=== PATIENT | male | born 1950 | race Caucasian/White ===

== ENCOUNTER 2021-07-24 00:01 | Emergency (ER) | payer MEDICARE, SELFPAY ==
--- NOTE | ~2021-07-24 | CT_ITS ---
EXAMINATION: CT brain wo con EXAM DATE: 07/24/2021 01:49 INDICATION: Head injury, right eyebrow laceration, fall. Hit edge of table. TECHNIQUE: Spiral CT of the head was performed without contrast. Axial, coronal and sagittal images were reviewed. The dose-length product (DLP) for this examination was 605.33 mGy-cm. The exposure w as tailored according to patient size, and iterative reconstruction (ASIR) was used as additional dos e reduction technique. There is no prior study for comparison. FINDINGS: There is no acute intraparenchymal hemorrhage. No evidence of intraparenchymal brain mass lesion. No evidence of acute infarction. Please note that initial head CT has limited sensitivity f or small or acute infarctions. There is mild periventricular and subcortical hypodensity, nonspecific but probably related to small vessel ischemic disease. There is mild prominence of the sulci and v entricles related to cerebral atrophy. There is intracranial carotid arteriosclerosis. There are n o extra-axial collections. There is no mass effect or midline shift. The orbits are unremarkable. Soft tissue is unremarkable. Partially imaged, partially opacified left maxillary sinus. IMPRESSION: 1. No acute intracranial findings. 2. Chronic age related findings. Reviewed, dictated and finalized at location A.
[2021-07-24 00:15] VITALS: BP 123/76; PULSE 77; RESP 19; TEMP 35.9; O2SAT 99
--- NOTE | 2021-07-24 02:00 | ED.GENADULT ---
HPI - General Adult General Chief complaint: Head Injury Stated complaint: right eyebrow laceration Time Seen by Provider: 07/24/21 01:24 Source: patient and family Limitations: no limitations History of Present Illness HPI narrative: 71-year-old male presenting to the emergency department for evaluation after having a head injury. Patient states he was in bed and heard a noise or had a bad dream that caused him to jump out of bed. Much of get a bed patient did strike his head on a nearby nightstand resulting in a laceration. Patient denied any loss of consciousness. Patient denies any other pain or injury. Patient does not take blood thinners. Patient suspected his tetanus was not up-to-date. Related Data Allergies Allergy/AdvReac Type Severity Reaction Status Date / Time Penicillins Allergy Mild Verified 06/03/15 10:29 Review of Systems Review of Systems: CONSTITUTIONAL: Denies fever, chills, or sweats. EYES: Denies visual changes, redness, or discharge. ENT: Denies rhinorrhea, congestion, sore throat, or otalgia. CARDIOVASCULAR: Denies chest pain, palpitations, or edema. RESPIRATORY: Denies cough or dyspnea. GASTROINTESTINAL: Denies abdominal pain, nausea, vomiting, or diarrhea. GENITOURINARY: Denies dysuria or hematuria. SKIN: Laceration involving right eyebrow MUSCULOSKELETAL: Denies back pain, joint pain, or myalgia. NEUROLOGIC: Denies headache, numbness, or weakness. All systems reviewed & are unremarkable except as noted in HPI and below Exam Narrative: APPEARANCE: Well appearing, no pain, no distress, well-nourished. HEAD: Vertical 3 cm laceration intersecting the right eyebrow. No bony crepitus EYES: PERRLA/EOMI, conjunctivae clear. NOSE: Normal no drainage NECK: Supple. No adenopathy, no masses. RESPIRATORY: Airway patent, respirations nonlabored. Clear to auscultation bilaterally, no rales, rhonchi, wheezing. CARDIOVASCULAR: Regular rate and rhythm without murmurs rubs or gallops. ABDOMINAL: Soft, nontender, nondistended, normal bowel sounds MUSCULOSKELETAL: Moves all extremities. Strength/ROM intact, No edema, No calf tenderness. NEURO: Alert. Cranial nerves II through XII intact. Grossly intact SKIN: Warm, dry. Normal Color. Laceration as described elsewhere Course Course Emergency Course: Head CT was negative for acute intracranial abnormality. Laceration was repaired as described above and tetanus was updated. Patient and family were updated on wound care and on the importance of close follow-up. Vital Signs Vital signs: Vital Signs Temperature 96.6 F L 07/24/21 00:15 Pulse Rate 77 07/24/21 00:15 Respiratory Rate 19 07/24/21 00:15 Blood Pressure 123/76 07/24/21 00:15 Pulse Oximetry 99 07/24/21 00:15 Temperature 96.6 F L 07/24/21 00:15 Pulse Rate 79 07/24/21 02:01 Respiratory Rate 18 07/24/21 02:01 Blood Pressure 162/71 H 07/24/21 02:01 Pulse Oximetry 98 07/24/21 02:01 Procedures Laceration Laceration 1: Time: 02:46 Site: face Side (If applicable): right (eyebrow) Size (cm): 3 Description: linear Depth: simple, single layer Local Anesthetic: lidocaine 1% and with bicarb Amount of anesthesia used (mL): 3 Pre-repair: wound explored and irrigated ====== Skin Level ====== Skin layer closed with: prolene Size (cm): 6-0 Number of sutures: 6 Technique: simple, interrupted ====== Subcutaneous Layer ====== ====== Muscle Layer ====== ====== Tendon Layer ====== Medical Decision Making Vital Signs Vital Signs: Vital Signs Temperature 96.6 F L 07/24/21 00:15 Pulse Rate 77 07/24/21 00:15 Respiratory Rate 19 07/24/21 00:15 Blood Pressure 123/76 07/24/21 00:15 Pulse Oximetry 99 07/24/21 00:15 Temperature 96.6 F L 07/24/21 00:15 Pulse Rate 79 07/24/21 02:01 Respiratory Rate 18 07/24/21 02:01 Blood Pressure 162/71 H 07/24/21 02:01
[2021-07-24 02:01] VITALS: BP 162/71; PULSE 79; RESP 18; O2SAT 98
[2021-07-24] MEDS: TETANUS,DIPHTHERIA,AC PERTUSSIS ADULT (0.5 ML) BOOSTRIX IM (02:57)
== END 2021-07-24 03:03 | disposition home or self-care (01) ==
PROVIDERS: Emergency Provider Emergency Medicine; PCP Internal Medicine Endocrinology, Diabetes & Metabolism
DX: S01.111A Laceration without foreign body of right eyelid and periocular area, initial encounter (principal); Z23 Encounter for immunization; W06.XXXA Fall from bed, initial encounter
CPT/HCPCS: 12002; 70450; 90471; 90715; 99284

== ENCOUNTER 2023-02-08 18:27 | Emergency (ER) | payer MEDICARE, SELFPAY ==
[2023-02-08] VITALS (7 sets, daily range): BP systolic 117–138; BP diastolic 74–94; PULSE 61–107; RESP 13–20; TEMP 36.4–36.7; O2SAT 98–100
--- NOTE | 2023-02-08 18:47 | ED.ALLEREA ---
HPI - Allergic Reaction General Chief complaint: Allergic Reaction Stated complaint: allergic reaction Time Seen by Provider: 02/08/23 18:44 History of Present Illness HPI narrative: Patient is a 72-year-old male who presents to the emergency department this afternoon complaining of an allergic reaction. 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 Patient is now presenting as he is unable to open his eyes due to significant swelling and ecchymosis. Patient denies any known allergen exposure, visit denying any oropharyngeal swelling, difficulty breathing or shortness of breath. Vision is decreased due to swelling. Patient denies any history of angioedema, any family history or any EDI inhibitor use. Swelling is localized to the bilateral periorbital region only. Patient denies any additional symptoms including chest pain, shortness of breath, nausea, vomiting, abdominal pain, dysuria, hematuria, constipation, diarrhea, melena, hematochezia, fevers or chills. He also denies any headaches, dizziness, lightheadedness, focal weakness, numbness and or tingling. There are no other modifying, alleviating, or precipitating factors at this time. Related Data Allergies Allergy/AdvReac Type Severity Reaction Status Date / Time Penicillins Allergy Mild Verified 06/03/15 10:29 Review of Systems Review of Systems: All systems are reviewed and are negative unless stated otherwise in the HPI. Exam Narrative: General: Alert, awake, afebrile, in no acute distress. HEENT: PERRL, no rhinorrhea, no post nasal drip, oropharynx clear, significant periorbital swelling and bilateral chemosis, no pain with extraocular movements, decreased visual acuity secondary to swelling. Neck: Trachea midline, no JVD, no lymphadenopathy. Cardiovascular: Tachycardic with regular rhythm, no murmurs, rubs or gallops, no peripheral edema. Respiratory: Clear to auscultation bilaterally, no tachypnea, no wheezing, no stridor, no rhonchi, no rubs, no respiratory distress. Abdomen: Soft, nontender, nondistended, no rebound, no guarding, no peritoneal signs. Musculoskeletal: No joint swelling or deformity, normal muscle tone. Skin: No rashes or petechia, no signs of infection. Psychiatric: Alert and oriented, normal behavior and judgment for situation. Neurological: Alert and oriented to person, place, and time. Follows all commands. No focal deficits, speech is clear and fluent. Course Vital Signs Vital signs: Vital Signs Temperature 97.6 F 02/08/23 18:38 Pulse Rate 107 H 02/08/23 18:38 Respiratory Rate 18 02/08/23 18:38 Blood Pressure 128/85 02/08/23 18:38 Pulse Oximetry 100 02/08/23 18:38 Oxygen Delivery Room Air 02/08/23 18:38 Temperature 98.0 F 02/08/23 18:41 Pulse Rate 61 02/08/23 21:35 Respiratory Rate 18 02/08/23 21:35 Blood Pressure 126/86 02/08/23 21:35 Pulse Oximetry 100 02/08/23 21:35 Oxygen Delivery Room Air 02/08/23 18:45 MDM - Allergic Reaction MDM Narrative Medical decision making narrative: The patient was evaluated by myself in the emergency department. History is obtained from patient who is an independent historian and physical exam was performed. External medical records were reviewed at this time. IV was established and pertinent tests were ordered. Patient was administered 125 mg of IV Solu-Medrol, 25 mg of IV Benadryl and 20 mg of IV Pepcid. Differential diagnosis considerations include contact allergic conjunctivitis. I have evaluated and discussed social determinants of health with the patient that could potentially impact subsequent diagnosis and treatment plans. On repeat assessment of the patient, reevaluation revealed that the patient is doing well and is in no acute distress. Patient symptoms have significantly improved gradually since he arrived to our emergency department wit
[2023-02-08] MEDS: FAMOTIDINE 20 MG/2 ML VIAL IV PUSH (18:52)
[2023-02-08] MEDS: diphenhydrAMINE HCl INJ 50 MG/ML VIAL 25 MG IV PUSH (18:52)
[2023-02-08] MEDS: methylPREDNISolone SOD SUCC 125 MG VIAL IV PUSH (18:58)
== END 2023-02-08 21:36 | disposition home or self-care (01) ==
PROVIDERS: Emergency Provider Emergency Medicine; PCP Internal Medicine Endocrinology, Diabetes & Metabolism
DX: T78.40XA Allergy, unspecified, initial encounter (principal); X58.XXXA Exposure to other specified factors, initial encounter
CPT/HCPCS: 96374; 96375; 99284; J1200; J2930

== ENCOUNTER 2024-03-20 08:20 | Outpatient (CLI) | payer MEDICARE, SELFPAY ==
[2024-03-20 09:08] LABS: Alanine Aminotransferase 33 U/L (6-50); Albumin Level 4.2 g/dL (3.5-5.1); Alkaline Phosphatase 76 U/L (38-126); Anion Gap 4 mmol/L (4-12); Aspartate Amino Transferase 24 U/L (17-59); Bilirubin,Total 0.7 mg/dL (0.2-1.3); Blood Urea Nitrogen 24 mg/dL (9-20); Calcium 9.2 mg/dL (8.4-10.2); Carbon Dioxide 30 mmol/L (22-30); Chloride 106 mmol/L (98-107); Estimated Glomerular Filt Rate > 60; Glucose 141 mg/dL (65-110); Sodium 140 mmol/L (137-145)
[2024-03-20 09:16] LABS: Basophils Absolute Auto 0.1 K/mm3 (0.0-0.1); Basophils Percent Auto 0.9 % (0.2-1.2); Eosinophils Absolute Auto 0.3 K/mm3 (0-0.3); Eosinophils Percent Auto 3.7 % (0-4.4); Hematocrit 44.9 % (42.0-52.0); Hemoglobin 15.4 g/dL (14.0-18.0); Immature Granulocyte Absolute 0.02 K/mm3 (0.00-0.031); Immature Granulocyte Percent A 0.3 % (0-0.5); Lymphocytes Absolute Auto 1.88 K/mm3 (0.9-3.2); Lymphocytes Percent Auto 28.1 % (18.3-44.2); Mean Corpuscular HGB Conc 34.3 g/dl (32-36); Mean Corpuscular Hemoglobin 31.2 pg (26-34); Mean Corpuscular Volume 90.9 fl (80-100); Mean Platelet Volume 10.2 fl (7.4-10.4); Monocytes Absolute Auto 0.4 K/mm3 (0.1-0.6); Monocytes Percent Auto 6.4 % (2.6-8.5); Neutrophils Absolute Auto 4.1 K/mm3 (1.3-6.7); Neutrophils Percent Auto 60.6 % (45.5-73.1); Platelet Count Result 161 k/mm3 (150-375); Red Blood Count 4.94 M/mm3 (4.6-6.20); Red Cell Distribution Width 12.5 % (11.5-14.5); White Blood Count 6.7 K/mm3 (4.5-10.0)
[2024-03-20 09:40] LABS: Thyroid Stimulating Hormone 0.903 uIU/mL (0.465-4.680)
[2024-03-20 09:41] LABS: Free T4 Free Thyroxine 0.82 ng/dL (0.78-2.19)
== END 2024-03-20 08:21 | disposition home or self-care (01) ==
PROVIDERS: PCP Internal Medicine Endocrinology, Diabetes & Metabolism; Visit Provider Internal Medicine Endocrinology, Diabetes & Metabolism
DX: Z00.00 Encounter for general adult medical examination without abnormal findings (principal); R97.20 Elevated prostate specific antigen [PSA]; R53.83 Other fatigue
CPT/HCPCS: 36415; 80053; 84153; 84439; 84443; 85025